=== PATIENT | female | born 1940 | race Caucasian/White ===

== ENCOUNTER 2017-07-19 02:30 | Emergency (ER) | payer MEDICARE ==
[~2017-07-19] VITALS: Ht 162.6 cm; Wt 92.1 kg
[~2017-07-19 02:30] MED LIST: DRON400T PO; ESOM20CA PO; FURO20TA3 PO; LEVO137T3 PO; LORA1TAB12 PO; MAGNTAB16 PO; METO-159 PO; MULTTAB PO; RIVA10TA PO
[2017-07-19 03:50] LABS: INR 1.15 (0.9-1.15); Partial Thromboplastin Time 35.5 sec (22.64-33.71); Prothrombin Time 12.5 sec (9.37-12.3)
[2017-07-19] MEDS ORDERED: ONDANSETRON ODT 4 MG TAB PO ONE (05:30)
[2017-07-19 07:18] VITALS: BP 155/68
== END 2017-07-19 07:53 | disposition home or self-care (01) ==
LOC: ER 02:31
DX: R04.0 Epistaxis (principal); I48.91 Unspecified atrial fibrillation; E78.5 Hyperlipidemia, unspecified; E07.9 Disorder of thyroid, unspecified; Z88.1 Allergy status to other antibiotic agents; Z88.6 Allergy status to analgesic agent; Z79.899 Other long term (current) drug therapy; Z90.49 Acquired absence of other specified parts of digestive tract
CPT/HCPCS: 36415; 85610; 85730; 99284; Q0162

== ENCOUNTER 2021-02-21 18:27 | Emergency (ER) | payer MEDICARE ==
[~2021-02-21] VITALS: Ht 160 cm; Wt 102.1 kg
[~2021-02-21 18:27] MED LIST changes: -LORA1TAB12 PO; +LORA1TAB23 PO; +MULT-733 PO; -MULTTAB PO
[2021-02-22 00:10] VITALS: BP 158/76
== END 2021-02-22 00:12 | disposition home or self-care (01) ==
LOC: EDBD 18:27 → ER 18:29
DX: S83.8X2A Sprain of other specified parts of left knee, initial encounter (principal); I11.0 Hypertensive heart disease with heart failure; I50.9 Heart failure, unspecified; I48.91 Unspecified atrial fibrillation; E78.00 Pure hypercholesterolemia, unspecified; Z88.1 Allergy status to other antibiotic agents; Z88.0 Allergy status to penicillin; Z88.5 Allergy status to narcotic agent; Z91.012 Allergy to eggs; Z79.899 Other long term (current) drug therapy; Z90.49 Acquired absence of other specified parts of digestive tract; Z98.890 Other specified postprocedural states; W18.39XA Other fall on same level, initial encounter; Y93.89 Activity, other specified; Y92.89 Other specified places as the place of occurrence of the external cause; Y99.8 Other external cause status
CPT/HCPCS: 73562; 73590